=== PATIENT | female | born 1995 | race Caucasian/White ===

== ENCOUNTER 2016-09-03 02:01 | Emergency (ER) | payer BC ==
[~2016-09-03] VITALS: Ht 175.3 cm; Wt 90.0 kg
[2016-09-03 02:07] VITALS: TEMP 36.8; Ht 175.3 cm; Wt 90.0 kg
[2016-09-03 02:11] VITALS: O2SAT 100
[2016-09-03] MEDS ORDERED: SODIUM CHLORIDE 0.9% 1000ML 1,000 ML IV STA (02:19)
[2016-09-03 02:56] LABS: HEMATOCRIT 39.3 % (37-47); MEAN CELL VOLUME 87.5 fL (80-100); MEAN CORPUSCULAR HEMOGLOBIN 30.3 pg (25-34); MEAN CORPUSCULAR HGB CONC 34.6 g/dl (32-36); MEAN PLATELET VOLUME 8.3 fL (7.4-10.4); PLATELET COUNT 362 K/uL (130-400); RED BLOOD COUNT 4.49 M/uL (4.2-5.4)
[2016-09-03] MEDS ORDERED: VNTHFA/IN INH (03:01)
[2016-09-03] MEDS ORDERED: LISD40CA PO (03:01)
[2016-09-03] MEDS ORDERED: FLVHFA110 INH (03:01)
[2016-09-03 03:14] LABS: BLOOD UREA NITROGEN 10 mg/dl (7-18); BUN/CREATININE RATIO 12.9 (10-20); CALCIUM 8.8 mg/dl (8.5-10.1); CARBON DIOXIDE 25 mmol/L (21-32); CHLORIDE 105 mmol/L (98-107); CREATININE 0.78 mg/dl (0.60-1.20); GLUCOSE 105 mg/dl (70-99); POTASSIUM 2.8 mmol/L (3.5-5.1); SODIUM 142 mmol/L (136-145)
--- NOTE | 2016-09-03 03:23 | EMERGENCY ROOM VISIT NOTE ---
History Report prepared by Gerber: Melodie Estrada Under the Supervision of: Dr. Bruce Shin M.D. First contact with patient: 02:09 Chief Complaint: SHORTNESS OF BREATH Stated Complaint: SHORT OF BREATH History of Present Illness The patient is a 21 year old female who presents to the Emergency Room with complaints of constant shortness of breath beginning [employer]. The patient was at [employer] and started feeling short of breath. She has a history of asthma and uses an inhaler. The patient states that she remembers being at [employer], but does not remember anything that happened that caused her to come here. She states "I just spaced out and woke up here." EMS states that they found the patient on the floor in the bar taking multiple hits of her inhaler. The patient admits to drinking "a shot or two" of alcohol tonight. She has a history of panic attacks. She denies any trauma or injury tonight. She does not think that she was drugged. She denies pain or swelling in her legs, urinary symptoms, recent travel, and any personal or family history of blood clots. She takes an OCP and denies chance of . Source of History: patient, EMS Onset: [employer] Position: chest Quality: other (SOB) Timing: constant Modifying Factors (Relieving): other (inhaler) Associated Symptoms: No urinary symptoms Note: She denies any trauma or injury tonight. She denies pain or swelling in her legs , recent travel, and any personal or family history of blood clots. Review of Systems See HPI for pertinent positives & negatives. A total of 10 systems reviewed and were otherwise negative. Past Medical & Surgical Medical Problems: (1) Asthma Family History No pertinent history stated. Social History Smoking Status: Unknown if Ever Smoked Alcohol Use: occasionally Occupation Status: employed Current/Historical Medications Scheduled Fluticasone Propionate (Flovent Hfa), 2 PUFFS INH BID Lisdexamfetamine Dimesylate (Vyvanse), 40 MG PO DAILY Scheduled PRN Albuterol Hfa (Ventolin Hfa), 2 PUFFS INH Q4 PRN for SOB/Wheezing Allergies Coded Allergies: No Known Allergies (Unverified , 09/03/16) Physical Exam Vital Signs Date Time Temp Pulse Resp B/P Pulse Ox O2 Delivery O2 Flow Rate FiO2 09/03/16 03:44 108 122/61 99 09/03/16 02:11 100 Room Air 09/03/16 02:11 100 Room Air 09/03/16 02:07 36.8 92 30 138/67 92 Room Air Physical Exam GENERAL: Patient is anxious appearing, crying, mildly intoxicated appearing and smells heavily of alcohol. HEENT: No acute trauma, normocephalic atraumatic, mucous membranes moist, no nasal congestion, no scleral icterus. NECK: No stridor, no adenopathy, no meningismus, trachea is midline. LUNGS: No dyspnea. Clear to auscultation and equal bilaterally. No wheeze, no rhonchi. HEART: Tachycardic rate and regular rhythm. No murmurs, rubs, gallops appreciated. ABDOMEN: Soft, nontender, bowel sounds positive, no masses appreciated, no peritonitis. BACK: No midline tenderness, no CVA tenderness EXTREMITIES: Normal motion all extremities, no cyanosis, no edema. NEUROLOGIC: Alert and oriented, no acute motor or sensory deficits, no focal weakness, cranial nerves grossly intact. SKIN: No rash, no jaundice, no diaphoresis. Medical Decision & Procedures ER Provider Diagnostic Interpretation: X ray results are stated below per my interpretation: Chest: 1 view: No infiltrate, no effusion, normal cardiac border. Laboratory Results 09/03/16 02:46 09/03/16 02:46 Test 09/03/16 02:46 Red Blood Count 4.49 M/uL (4.2-5.4) Mean Corpuscular Volume 87.5 fL (80-100) Mean Corpuscular Hemoglobin 30.3 pg (25-34) Mean Corpuscular Hemoglobin Concent 34.6 g/dl (32-36) RDW Standard Deviation 41.0 fL (36.4-46.3) RDW Coefficient of Variation 12.8 % (11.5-14.5) Mean Platelet Volume 8.3 fL (7.4-10.4) D-Dimer 210 ug/L FEU (0-500) Anion Gap 12.0 mmol/L (3-11) Est Creatinine Clear Calc Drug Dose 136.4 ml/min Estimated GFR () 126.0 Estimated GFR (Non- 108.7 BUN/Creatinine Ratio 12.9 (10-20) Calcium Level 8.8 mg/dl (8.5-10.1) Troponin I < 0.015 ng/ml (0-0.045) Ethyl Alcohol mg/dL 265.0 mg/dl (0-3) Laboratory results as reviewed by me. Medications Administered Medications (Trade) Dose Ordered Sig/Julieth Route Start Time Stop Time Status Last Admin Dose Admin Sodium Chloride (Nss 1000ml) 1,000 ml @ 999 mls/hr Q1H1M STAT IV 09/03/16 02:19 09/03/16 03:19 DC 09/03/16 02:49 999 MLS/HR Potassium Chloride (Klor-Con M10) 20 meq NOW STAT PO 09/03/16 03:30 09/03/16 03:31 DC 09/03/16 03:38 20 MEQ ECG Indication: SOB/dyspnea Rate (beats per minute): 101 Rhythm: sinus tachycardia Findings: no acute ischemic change, no ectopy Comparison ECG Date: no prior available ED Course 0209: The patient was evaluated in room B5. A complete history and physical exam was performed. 0219: NSS 1000 ml @ 999 mls/hr 0325: I reassessed the patient at this time. She is feeling much better. She has had multiple rounds of antibiotics and steroids over the last 4 weeks and is just finishing up steroids now. I discussed the results and treatment plan with the patient. I answered all pertaining questions that she had. She expressed understanding and verbalized agreement. The patient will be discharged home. 0330: Potassium Chloride 20 meq PO Medical Decision Differential: Anxiety, Intoxication, Infectious, Reactive Airway Disease, Pneumonia, Pneumothorax, Pulmonary Embolism, MSK, GI, Dissection, amongst other etiologies entertained. 21 yr old female brought in for acute anxiety attack and apparently blacking out. Initially severely underestimated how much she was drinking as clearly she has been drinking a lot. Admit multiple recent abx including prednisone for bronchitis which she is currently on (consistent with WBC elevation). She furthermore has some mild hypoK thus given dose here. She feels fine and wishes to go home. Has sober friend to take her home. EKG, Trop, Dimer negative. She is breathing comfortably and much calmer now. She states she has good follow up with her PCP. Aware RTED at any time if worsening or other concerns. Impression Primary Impression: Acute anxiety Additional Impressions: Hypokalemia Alcohol intoxication Scribe Attestation The scribe's documentation has been prepared under my direction and personally reviewed by me in its entirety. I confirm that the note above accurately reflects all work, treatment, procedures, and medical decision making performed by me. Departure Information Dispostion Home / Self-Care Referrals Primary Care Provider Forms HOME CARE DOCUMENTATION FORM, IMPORTANT VISIT INFORMATION Patient Instructions Hypokalemia Freddy, [facility] Additional Instructions We are always here to help. Return if worsening symptoms or other concerns. Problem Qualifiers Additional Impressions: Alcohol intoxication Complication of substance-induced condition: uncomplicated Qualified Codes: F10.120 - Alcohol abuse with intoxication, uncomplicated
[2016-09-03] MEDS ORDERED: POTASSIUM CHLORIDE 10 MEQ TABCR PO STA (03:30)
[2016-09-03 03:44] VITALS: BP 122/61; PULSE 108; O2SAT 99
--- NOTE | 2016-09-03 06:32 | DIAGNOSTIC IMAGING REPORT ---
CHEST ONE VIEW PORTABLE CLINICAL HISTORY: tachycardia SHORTNESS OF BREATH COMPARISON STUDY: No previous studies for comparison. FINDINGS: The cardiac and mediastinal contours are normal. There is no evidence of focal pulmonary consolidation. There is no evidence of failure. No pleural effusions are visualized.[ IMPRESSION: No active disease in the chest. Electronically signed by: Denny Gautam M.D. 09/03/2016 6:30 AM Dictated Date/Time: 09/03/2016 6:30 AM
== END 2016-09-03 03:45 | disposition home or self-care (01) ==
LOC: EDBD 02:01 → C.EDB 02:04
DX: F41.9 Anxiety disorder, unspecified (principal); E87.6 Hypokalemia; F10.120 Alcohol abuse with intoxication, uncomplicated; J45.909 Unspecified asthma, uncomplicated; Z79.899 Other long term (current) drug therapy